=== PATIENT | female | born 1975 | race African-American/Black ===

== ENCOUNTER 2018-04-11 04:46 | Inpatient (IN) | payer BC ==
[2018-04-11] MEDS ORDERED: ACETAMINOPHEN 325 MG TAB PO (06:00)
[2018-04-11] MEDS ORDERED: morphine 2 MG INJ IV (06:00)
[2018-04-11 07:44] LABS: ADD MAN DIFF? NO
[2018-04-11 07:55] LABS: WHITE BLOOD COUNT 5.4 10^3/ul (4.8-10.8)
[2018-04-11 07:55] LABS: BASOPHILS % 0.4 % (0.0-2.0); EOSINOPHILS # 0.2 10^3/ul (0.0-0.5); HEMOGLOBIN 11.4 g/dl (12.0-16.0); LYMPHOCYTES # 1.1 10^3/ul (0.8-2.9); LYMPHOCYTES % 21.1 % (15.0-51.0); MEAN CORPUSCULAR HEMOGLOBIN 25.4 pg (29.0-33.0); MEAN CORPUSCULAR HGB CONC 32.6 g/dl (32.0-37.0); MEAN PLATELET VOLUME 9.8 fl (7.4-10.4); MONOCYTE # 0.6 10^3/ul (0.3-0.9); MONOCYTES % 10.9 % (0.0-11.0); NEUTROPHIL # 3.5 10^3/ul (1.6-7.5); NEUTROPHILS % 64.4 % (39.0-77.0); PLATELET COUNT 404 10^3/UL (140-415); RED BLOOD COUNT 4.49 10^6/ul (4.20-5.40); RED CELL DISTRIBUTION WIDTH 14.3 % (11.5-14.5)
[2018-04-11] MEDS: PANTOPRAZOLE 40 MG INJ IV (08:13)
[2018-04-11 08:22] LABS: ALANINE AMINOTRANSFERASE 36 IU/L (13-69); ALBUMIN 3.4 g/dl (3.3-4.9); ALKALINE PHOSPHATASE 60 IU/L (42-121); ANION GAP 15 (8-16); ASPARTATE AMINO TRANSFERASE 25 IU/L (15-46); BILIRUBIN,INDIRECT 0.3 mg/dl (0-1.1); BILIRUBIN,TOTAL 0.3 mg/dl (0.2-1.3); BLOOD UREA NITROGEN 4 mg/dl (7-20); CALCIUM 8.8 mg/dl (8.4-10.2); CARBON DIOXIDE 27 mmol/L (21-31); CHLORIDE 109 mmol/L (97-110); CREATININE 0.61 mg/dl (0.44-1.00); GLUCOSE 84 mg/dl (70-220); POTASSIUM 3.6 mmol/L (3.5-5.1); SODIUM 147 mmol/L (135-144); TOTAL PROTEIN 8.2 g/dl (6.1-8.1)
[2018-04-11 15:03] LABS: CARCINOEMBRYONIC ANTIGEN 0.5 ng/ml (0.0-5.0)
[2018-04-11 15:28] LABS: CANCER ANTIGEN 19-9 < 1.4 U/ml (0.0-37.0)
[2018-04-11 16:35] LABS: INR 1.13; PROTIME 14.7 Sec (11.9-14.9); PT RATIO 1.1
[2018-04-11 23:27] LABS: ADD UMIC NO; UR ASCORBIC ACID NEGATIVE (NEGATIVE); UR BILIRUBIN (Dip) NEGATIVE (NEGATIVE); UR BLOOD (Dip) NEGATIVE (NEGATIVE); UR CLARITY SLIGHTLY CLOUDY (CLEAR); UR COLOR YELLOW (YELLOW); UR GLUCOSE (Dip) NEGATIVE (NEGATIVE); UR KETONES (Dip) NEGATIVE (NEGATIVE); UR LEUKOCYTE ESTERASE (Dip) NEGATIVE Leu/ul (NEGATIVE); UR NITRITE (Dip) NEGATIVE (NEGATIVE); UR RBC 0 /HPF (0-5); UR SPECIFIC GRAVITY (Dip) 1.008 (1.003-1.030); UR SQUAMOUS EPITHELIAL CELL MODERATE /HPF (FEW); UR TOTAL PROTEIN (Dip) NEGATIVE (NEGATIVE); UR UROBILINOGEN (Dip) NEGATIVE (NEGATIVE); UR WBC 1 /HPF (0-5)
[2018-04-12] MEDS: PANTOPRAZOLE 40 MG INJ IV (05:38)
[2018-04-12 08:31] LABS: ALANINE AMINOTRANSFERASE 34 IU/L (13-69); ALBUMIN/GLOBULIN RATIO 0.66; ALKALINE PHOSPHATASE 54 IU/L (42-121); ANION GAP 14 (8-16); ASPARTATE AMINO TRANSFERASE 26 IU/L (15-46); BILIRUBIN,INDIRECT 0.5 mg/dl (0-1.1); BILIRUBIN,TOTAL 0.5 mg/dl (0.2-1.3); BLOOD UREA NITROGEN 3 mg/dl (7-20); CALCIUM 8.8 mg/dl (8.4-10.2); CARBON DIOXIDE 25 mmol/L (21-31); CHLORIDE 109 mmol/L (97-110); CREATININE 0.59 mg/dl (0.44-1.00); GLUCOSE 79 mg/dl (70-220); POTASSIUM 4.2 mmol/L (3.5-5.1); SODIUM 144 mmol/L (135-144); TOTAL PROTEIN 7.5 g/dl (6.1-8.1)
[2018-04-12] MEDS: LIDOCAINE 1% (MDV) 10 ML INJ (12:14)
[2018-04-12 14:10] LABS: FLD MN% 79.4 %; FLD PMN% 20.6 %; FLD RBC 3000 /uL; FLD WBC 3309 /cmm
[2018-04-12 14:21] LABS: FLD TYPE PARACENTHESIS
[2018-04-12 14:21] LABS: FLD CLARITY HAZY; FLD COLOR YELLOW; FLUID GLUCOSE 96 mg/dl; FLUID TOTAL PROTEIN 6.1 g/dl; FLUID TYPE PARACENTESIS FLUID
[2018-04-13] MEDS: PANTOPRAZOLE 40 MG INJ IV (05:18)
[2018-04-13] MEDS: IOHEXOL 14.3 MG(I)/ML (ADULT) BTL PO (09:35)
[2018-04-13] MEDS: IOHEXOL 300MG/ML 150 ML BTL (13:17)
[2018-04-13] MEDS: SOD CHLORIDE 0.9% 100 ML (13:17)
[2018-04-13] MEDS ORDERED: morphine LIQ (10 MG/5 ML) CUP PO (14:30)
[2018-04-14] MEDS: PANTOPRAZOLE 40 MG INJ IV (05:19)
[2018-04-14 05:46] LABS: ADD MAN DIFF? NO
[2018-04-14 05:51] LABS: BASOPHILS % 0.4 % (0.0-2.0); EOSINOPHILS # 0.2 10^3/ul (0.0-0.5); EOSINOPHILS % 4.5 % (0.0-7.0); HEMATOCRIT 34.2 % (37.0-47.0); HEMOGLOBIN 11.1 g/dl (12.0-16.0); LYMPHOCYTES # 1.3 10^3/ul (0.8-2.9); LYMPHOCYTES % 23.8 % (15.0-51.0); MEAN CORPUSCULAR HEMOGLOBIN 24.9 pg (29.0-33.0); MEAN CORPUSCULAR HGB CONC 32.5 g/dl (32.0-37.0); MEAN CORPUSCULAR VOLUME 76.9 fl (82.0-101.0); MEAN PLATELET VOLUME 9.1 fl (7.4-10.4); MONOCYTE # 0.6 10^3/ul (0.3-0.9); MONOCYTES % 10.7 % (0.0-11.0); NEUTROPHIL # 3.2 10^3/ul (1.6-7.5); NEUTROPHILS % 60.2 % (39.0-77.0); PLATELET COUNT 385 10^3/UL (140-415); RED BLOOD COUNT 4.45 10^6/ul (4.20-5.40); RED CELL DISTRIBUTION WIDTH 14.1 % (11.5-14.5)
[2018-04-14 05:51] LABS: WHITE BLOOD COUNT 5.3 10^3/ul (4.8-10.8)
[2018-04-14 06:25] LABS: ANION GAP 13 (8-16); BLOOD UREA NITROGEN 6 mg/dl (7-20); CALCIUM 8.7 mg/dl (8.4-10.2); CARBON DIOXIDE 26 mmol/L (21-31); CHLORIDE 107 mmol/L (97-110); CREATININE 0.62 mg/dl (0.44-1.00); GLUCOSE 93 mg/dl (70-220); POTASSIUM 3.9 mmol/L (3.5-5.1); SODIUM 142 mmol/L (135-144)
[2018-04-14 10:06] LABS: INR 1.09; PROTIME 14.2 Sec (11.9-14.9); PT RATIO 1.1
[2018-04-14 10:07] LABS: PARTIAL THROMBOPLASTIN TIME 32.6 Sec (25.0-35.0)
[2018-04-14] MEDS: DEXTROSE 5%-0.45% NACL 1,000 ML IV (10:30)
[2018-04-14] MEDS: LIDOCAINE 1% (MDV) 10 ML INJ (13:43)
[2018-04-14] MEDS: FENTAnyl 50 MCG/ML VIAL (13:43)
[2018-04-14] MEDS: GELATIN 12MM X 7 MM SPONGE (15:34)
[2018-04-15] MEDS: PANTOPRAZOLE 40 MG INJ IV (05:14)
[2018-04-15] MEDS: DEXTROSE 5%-0.45% NACL 1,000 ML IV ×2 (06:30→23:28)
[2018-04-15 20:58] LABS: BODY FLUID Ascitic fluid
[2018-04-16] MEDS: PANTOPRAZOLE 40 MG INJ IV (05:58)
[2018-04-16 11:27] LABS: LACTATE DEHYDROGENASE 544 IU/L (313-618)
[2018-04-16] MEDS ORDERED: ONDANSETRON 4 MG INJ IV (18:00)
[2018-04-17] MEDS: PANTOPRAZOLE 40 MG INJ IV ×2 (05:35→09:26)
[2018-04-17] MEDS: FUROSEMIDE 20 MG INJ IV (09:25)
[2018-04-18] MEDS: PANTOPRAZOLE 40 MG INJ IV (05:37)
[2018-04-18] MEDS: FUROSEMIDE 20 MG INJ IV (09:48)
== END 2018-04-18 15:00 | disposition home or self-care (01) | DRG 375 ==
LOC: PP2 04:46 → TEL 06:01 → MS1 04-12 22:59
PROVIDERS: Internal Medicine Nephrology
PROC: 0W9G3ZZ Drainage of Peritoneal Cavity, Percutaneous Approach (ICD-10-PCS; 2018-04-12)
PROC: 0JBC3ZX Excision of Pelvic Region Subcutaneous Tissue and Fascia, Percutaneous Approach, Diagnostic (ICD-10-PCS; principal; 2018-04-14)
DX: C78.6 Secondary malignant neoplasm of retroperitoneum and peritoneum (principal); R18.8 Other ascites; E87.0 Hyperosmolality and hypernatremia; D64.9 Anemia, unspecified; C80.1 Malignant (primary) neoplasm, unspecified; Z90.710 Acquired absence of both cervix and uterus; Z90.721 Acquired absence of ovaries, unilateral
CPT/HCPCS: 74178; 76700; 76830; 76856; 77012; 80048; 80053; 81001; 81003; 82105; 82378; 82945; 83615; 83986; 84157; 84702; 85025; 85610; 85730; 86301; 86304; 87070; 87102; 87116; 88104; 88305; 88307; 88313; 89051; 93306

== ENCOUNTER 2018-05-02 12:20 | Inpatient (IN) | payer BC ==
[~2018-05-02 12:20] MED LIST: ROCURONIUM 50 MG INJ
[2018-05-02] MEDS ORDERED: ROPIVACAINE 0.2% 20 ML VIAL (16:07)
[2018-05-02] MEDS ORDERED: MIDAZOLAM 1 MG/ML 2 ML INJ (16:07)
[2018-05-02] MEDS ORDERED: CEFAZOLIN 1 GM INJ (16:50)
[2018-05-02] MEDS ORDERED: ONDANSETRON 4 MG INJ (16:54)
[2018-05-02] MEDS ORDERED: DEXAMETHASONE 4 MG/ML 1 ML INJ (16:54)
[2018-05-02] MEDS ORDERED: FAMOTIDINE 20 MG INJ (16:54)
[2018-05-02] MEDS ORDERED: SUGAMMADEX SODIUM 200 MG/2 ML VIAL IV (18:09)
[2018-05-02] MEDS ORDERED: HYDROCODONE/APAP (5/325) TAB PO (18:30)
[2018-05-02] MEDS ORDERED: ONDANSETRON 4 MG INJ IV ×2 (18:30→19:00)
[2018-05-02] MEDS ORDERED: DIPHENHYDRAMINE 50 MG INJ IV (18:30)
[2018-05-02] MEDS ORDERED: CEPASTAT LOZENGE MT (18:30)
[2018-05-02] MEDS ORDERED: morphine 2 MG INJ IV (18:30)
[2018-05-02] MEDS ORDERED: HYDROmorphONE 1 MG/5 ML IV SYRINGE IV (19:00)
[2018-05-02 19:31] LABS: ADD MAN DIFF? NO
[2018-05-02 19:35] LABS: EOSINOPHILS % 0.4 % (0.0-7.0); HEMATOCRIT 33.9 % (37.0-47.0); LYMPHOCYTES # 0.6 10^3/ul (0.8-2.9); LYMPHOCYTES % 6.8 % (15.0-51.0); MEAN CORPUSCULAR HEMOGLOBIN 24.8 pg (29.0-33.0); MEAN CORPUSCULAR HGB CONC 32.4 g/dl (32.0-37.0); MEAN CORPUSCULAR VOLUME 76.5 fl (82.0-101.0); MEAN PLATELET VOLUME 8.9 fl (7.4-10.4); MONOCYTE # 0.2 10^3/ul (0.3-0.9); NEUTROPHIL # 8.3 10^3/ul (1.6-7.5); NEUTROPHILS % 90.5 % (39.0-77.0); PLATELET COUNT 343 10^3/UL (140-415); RED BLOOD COUNT 4.43 10^6/ul (4.20-5.40); RED CELL DISTRIBUTION WIDTH 14.6 % (11.5-14.5)
[2018-05-02 19:35] LABS: WHITE BLOOD COUNT 9.2 10^3/ul (4.8-10.8)
[2018-05-02 19:53] LABS: ANION GAP 7 (8-16); BLOOD UREA NITROGEN 5 mg/dl (7-20); CALCIUM 8.2 mg/dl (8.4-10.2); CARBON DIOXIDE 25 mmol/L (21-31); CHLORIDE 108 mmol/L (97-110); GLUCOSE 95 mg/dl (70-220); POTASSIUM 3.6 mmol/L (3.5-5.1); SODIUM 136 mmol/L (135-144)
[2018-05-02] MEDS: D5-NS + KCL 20 MEQ 1,000 ML IV (20:13)
[2018-05-02] MEDS: FAMOTIDINE 20 MG TAB PO (21:00)
[2018-05-03] MEDS: D5-NS + KCL 20 MEQ 1,000 ML IV ×3 (04:45→15:47)
[2018-05-03 05:43] LABS: ADD MAN DIFF? NO
[2018-05-03 05:46] LABS: HEMATOCRIT 34.6 % (37.0-47.0); HEMOGLOBIN 11.4 g/dl (12.0-16.0); LYMPHOCYTES # 0.7 10^3/ul (0.8-2.9); LYMPHOCYTES % 10.6 % (15.0-51.0); MEAN CORPUSCULAR HEMOGLOBIN 24.9 pg (29.0-33.0); MEAN CORPUSCULAR HGB CONC 32.9 g/dl (32.0-37.0); MEAN CORPUSCULAR VOLUME 75.5 fl (82.0-101.0); MEAN PLATELET VOLUME 9.5 fl (7.4-10.4); MONOCYTE # 0.4 10^3/ul (0.3-0.9); MONOCYTES % 5.6 % (0.0-11.0); NEUTROPHIL # 5.5 10^3/ul (1.6-7.5); NEUTROPHILS % 83.5 % (39.0-77.0); PLATELET COUNT 364 10^3/UL (140-415); RED BLOOD COUNT 4.58 10^6/ul (4.20-5.40); RED CELL DISTRIBUTION WIDTH 14.7 % (11.5-14.5)
[2018-05-03 05:46] LABS: WHITE BLOOD COUNT 6.6 10^3/ul (4.8-10.8)
[2018-05-03 06:25] LABS: ALANINE AMINOTRANSFERASE 35 IU/L (13-69); ALBUMIN/GLOBULIN RATIO 0.62; ALKALINE PHOSPHATASE 59 IU/L (42-121); ANION GAP 9 (8-16); ASPARTATE AMINO TRANSFERASE 29 IU/L (15-46); BILIRUBIN,INDIRECT 0.4 mg/dl (0-1.1); BILIRUBIN,TOTAL 0.4 mg/dl (0.2-1.3); BLOOD UREA NITROGEN 4 mg/dl (7-20); CALCIUM 8.3 mg/dl (8.4-10.2); CARBON DIOXIDE 24 mmol/L (21-31); CHLORIDE 111 mmol/L (97-110); CREATININE 0.54 mg/dl (0.44-1.00); GLUCOSE 157 mg/dl (70-220); POTASSIUM 4.2 mmol/L (3.5-5.1); SODIUM 140 mmol/L (135-144); TOTAL PROTEIN 7.8 g/dl (6.1-8.1)
[2018-05-03] MEDS: FAMOTIDINE 20 MG TAB PO ×2 (08:57→22:29)
[2018-05-03] MEDS: ENOXAPARIN 40 MG/0.4 ML SYG SC (08:58)
[2018-05-04 06:13] LABS: ADD MAN DIFF? NO
[2018-05-04 06:15] LABS: BASOPHILS % 0.2 % (0.0-2.0); EOSINOPHILS # 0.3 10^3/ul (0.0-0.5); EOSINOPHILS % 3.8 % (0.0-7.0); HEMATOCRIT 35.2 % (37.0-47.0); HEMOGLOBIN 11.5 g/dl (12.0-16.0); LYMPHOCYTES # 1.2 10^3/ul (0.8-2.9); LYMPHOCYTES % 18.2 % (15.0-51.0); MEAN CORPUSCULAR HEMOGLOBIN 24.9 pg (29.0-33.0); MEAN CORPUSCULAR HGB CONC 32.7 g/dl (32.0-37.0); MEAN CORPUSCULAR VOLUME 76.2 fl (82.0-101.0); MEAN PLATELET VOLUME 9.4 fl (7.4-10.4); MONOCYTE # 0.8 10^3/ul (0.3-0.9); MONOCYTES % 11.3 % (0.0-11.0); NEUTROPHIL # 4.4 10^3/ul (1.6-7.5); PLATELET COUNT 339 10^3/UL (140-415); RED BLOOD COUNT 4.62 10^6/ul (4.20-5.40); RED CELL DISTRIBUTION WIDTH 14.7 % (11.5-14.5)
[2018-05-04 06:15] LABS: WHITE BLOOD COUNT 6.6 10^3/ul (4.8-10.8)
[2018-05-04] MEDS: ENOXAPARIN 40 MG/0.4 ML SYG SC (06:28)
[2018-05-04 07:06] LABS: ANION GAP 8 (8-16); CALCIUM 8.2 mg/dl (8.4-10.2); CARBON DIOXIDE 25 mmol/L (21-31); CHLORIDE 110 mmol/L (97-110); CREATININE 0.57 mg/dl (0.44-1.00); GLUCOSE 84 mg/dl (70-220); POTASSIUM 3.8 mmol/L (3.5-5.1); SODIUM 139 mmol/L (135-144)
[2018-05-04 07:10] LABS: BLOOD UREA NITROGEN < 2 mg/dl (7-20)
[2018-05-04] MEDS: FAMOTIDINE 20 MG TAB PO ×2 (09:10→21:30)
[2018-05-04] MEDS ORDERED: morphine LIQ (10 MG/5 ML) CUP PO (15:00)
[2018-05-04 18:27] LABS: CARCINOEMBRYONIC ANTIGEN 0.4 ng/ml (0.0-5.0)
[2018-05-05] MEDS: ENOXAPARIN 40 MG/0.4 ML SYG SC (07:00)
[2018-05-05] MEDS: FAMOTIDINE 20 MG TAB PO ×2 (08:00→20:38)
[2018-05-06] MEDS: ENOXAPARIN 40 MG/0.4 ML SYG SC (06:31)
[2018-05-06] MEDS: FAMOTIDINE 20 MG TAB PO ×2 (09:24→20:00)
[2018-05-06 11:56] LABS: NIL 0.04 IU/mL; QUANTIFERON(R)-TB GOLD NEGATIVE (NEGATIVE); TB-NIL 0.01 IU/mL
[2018-05-06] MEDS ORDERED: VITAMIN A & D 5 GM OINT PACKET TOP (16:52)
[2018-05-07] MEDS: ENOXAPARIN 40 MG/0.4 ML SYG SC (07:00)
[2018-05-07] MEDS: FAMOTIDINE 20 MG TAB PO ×2 (08:33→20:08)
[2018-05-07] MEDS: ACETAMINOPHEN 325 MG TAB PO (16:01)
[2018-05-08 06:00] LABS: ADD MAN DIFF? NO
[2018-05-08 06:08] LABS: BASOPHILS % 0.4 % (0.0-2.0); EOSINOPHILS # 0.4 10^3/ul (0.0-0.5); EOSINOPHILS % 6.3 % (0.0-7.0); HEMATOCRIT 33.2 % (37.0-47.0); HEMOGLOBIN 10.8 g/dl (12.0-16.0); LYMPHOCYTES # 1.5 10^3/ul (0.8-2.9); LYMPHOCYTES % 26.2 % (15.0-51.0); MEAN CORPUSCULAR HEMOGLOBIN 24.5 pg (29.0-33.0); MEAN CORPUSCULAR HGB CONC 32.5 g/dl (32.0-37.0); MEAN CORPUSCULAR VOLUME 75.5 fl (82.0-101.0); MEAN PLATELET VOLUME 9.2 fl (7.4-10.4); MONOCYTE # 0.7 10^3/ul (0.3-0.9); MONOCYTES % 11.6 % (0.0-11.0); NEUTROPHIL # 3.1 10^3/ul (1.6-7.5); NEUTROPHILS % 55.1 % (39.0-77.0); PLATELET COUNT 316 10^3/UL (140-415); RED CELL DISTRIBUTION WIDTH 14.5 % (11.5-14.5)
[2018-05-08 06:08] LABS: WHITE BLOOD COUNT 5.6 10^3/ul (4.8-10.8)
[2018-05-08] MEDS: ENOXAPARIN 40 MG/0.4 ML SYG SC (06:08)
[2018-05-08 06:28] LABS: ANION GAP 10 (8-16); BLOOD UREA NITROGEN 8 mg/dl (7-20); CALCIUM 8.5 mg/dl (8.4-10.2); CARBON DIOXIDE 25 mmol/L (21-31); CHLORIDE 108 mmol/L (97-110); CREATININE 0.56 mg/dl (0.44-1.00); GLUCOSE 110 mg/dl (70-220); POTASSIUM 3.8 mmol/L (3.5-5.1); SODIUM 139 mmol/L (135-144)
[2018-05-08] MEDS: FAMOTIDINE 20 MG TAB PO ×2 (08:16→20:01)
[2018-05-08 15:07] LABS: RHEUMATOID FACTOR NEGATIVE (NEGATIVE)
[2018-05-08] MEDS ORDERED: VITAMIN A & D 5 GM OINT PACKET TOP (20:04)
[2018-05-09] MEDS: ENOXAPARIN 40 MG/0.4 ML SYG SC (07:00)
[2018-05-09] MEDS: FAMOTIDINE 20 MG TAB PO ×2 (08:16→20:13)
[2018-05-10] MEDS: ENOXAPARIN 40 MG/0.4 ML SYG SC (06:31)
[2018-05-10] MEDS: FAMOTIDINE 20 MG TAB PO ×2 (09:11→20:27)
[2018-05-10 11:08] LABS: ERYTHROCYTE SEDIMENTATION RATE 78 mm/Hr (0-20)
[2018-05-10 15:07] LABS: MYELOPEROXIDASE ANTIBODY <1.0 AI; PROTEINASE-3 ANTIBODY <1.0 AI
[2018-05-10 18:46] LABS: ADD UMIC YES; UR ASCORBIC ACID NEGATIVE (NEGATIVE); UR BILIRUBIN (Dip) NEGATIVE (NEGATIVE); UR BLOOD (Dip) 1+ mg/dL (NEGATIVE); UR CLARITY CLEAR (CLEAR); UR COLOR STRAW (YELLOW); UR GLUCOSE (Dip) NEGATIVE (NEGATIVE); UR KETONES (Dip) NEGATIVE (NEGATIVE); UR LEUKOCYTE ESTERASE (Dip) NEGATIVE Leu/ul (NEGATIVE); UR NITRITE (Dip) NEGATIVE (NEGATIVE); UR RBC 1 /HPF (0-5); UR SPECIFIC GRAVITY (Dip) 1.011 (1.003-1.030); UR SQUAMOUS EPITHELIAL CELL FEW /HPF (FEW); UR TOTAL PROTEIN (Dip) NEGATIVE (NEGATIVE); UR UROBILINOGEN (Dip) NEGATIVE (NEGATIVE); UR WBC 0 /HPF (0-5)
[2018-05-11 05:56] LABS: INR 0.99; PROTIME 13.2 Sec (11.9-14.9)
[2018-05-11] MEDS: ENOXAPARIN 40 MG/0.4 ML SYG SC (06:30)
[2018-05-11 06:59] LABS: C-REACTIVE PROTEIN 4.2 mg/dl (0.0-0.9)
[2018-05-11] MEDS: FAMOTIDINE 20 MG TAB PO ×2 (08:01→20:52)
[2018-05-11] MEDS: LIDOCAINE 1% (MDV) 10 ML INJ (10:00)
[2018-05-11 13:13] LABS: ANCA SCREEN NEGATIVE (NEGATIVE)
[2018-05-12 05:52] LABS: ADD MAN DIFF? NO
[2018-05-12 05:57] LABS: BASOPHILS % 0.2 % (0.0-2.0); EOSINOPHILS # 0.3 10^3/ul (0.0-0.5); EOSINOPHILS % 5.3 % (0.0-7.0); HEMATOCRIT 31.5 % (37.0-47.0); HEMOGLOBIN 10.3 g/dl (12.0-16.0); LYMPHOCYTES # 1.8 10^3/ul (0.8-2.9); LYMPHOCYTES % 29.4 % (15.0-51.0); MEAN CORPUSCULAR HEMOGLOBIN 24.6 pg (29.0-33.0); MEAN CORPUSCULAR HGB CONC 32.7 g/dl (32.0-37.0); MEAN CORPUSCULAR VOLUME 75.4 fl (82.0-101.0); MEAN PLATELET VOLUME 9.2 fl (7.4-10.4); MONOCYTE # 0.6 10^3/ul (0.3-0.9); MONOCYTES % 10.1 % (0.0-11.0); NEUTROPHIL # 3.4 10^3/ul (1.6-7.5); NEUTROPHILS % 54.7 % (39.0-77.0); PLATELET COUNT 355 10^3/UL (140-415); RED BLOOD COUNT 4.18 10^6/ul (4.20-5.40); RED CELL DISTRIBUTION WIDTH 14.8 % (11.5-14.5)
[2018-05-12 05:57] LABS: WHITE BLOOD COUNT 6.3 10^3/ul (4.8-10.8)
[2018-05-12 06:35] LABS: ALANINE AMINOTRANSFERASE 122 IU/L (13-69); ALBUMIN 2.9 g/dl (3.3-4.9); ALBUMIN/GLOBULIN RATIO 0.61; ALKALINE PHOSPHATASE 59 IU/L (42-121); ANION GAP 10 (8-16); ASPARTATE AMINO TRANSFERASE 110 IU/L (15-46); BILIRUBIN,INDIRECT 0.3 mg/dl (0-1.1); BILIRUBIN,TOTAL 0.3 mg/dl (0.2-1.3); BLOOD UREA NITROGEN 11 mg/dl (7-20); CALCIUM 8.7 mg/dl (8.4-10.2); CARBON DIOXIDE 25 mmol/L (21-31); CHLORIDE 109 mmol/L (97-110); CREATININE 0.69 mg/dl (0.44-1.00); GLUCOSE 90 mg/dl (70-220); POTASSIUM 4.1 mmol/L (3.5-5.1); SODIUM 140 mmol/L (135-144); TOTAL PROTEIN 7.6 g/dl (6.1-8.1)
[2018-05-12] MEDS: ENOXAPARIN 40 MG/0.4 ML SYG SC (06:35)
[2018-05-12] MEDS: FAMOTIDINE 20 MG TAB PO ×2 (08:29→20:44)
[2018-05-12] MEDS: FLUCONAZOLE 200 MG TAB PO (15:39)
[2018-05-12 21:57] LABS: HISTOPLASMA GALACTOMANNAN AG U <0.5 ng/mL
[2018-05-13] MEDS: ACETAMINOPHEN 325 MG TAB PO (00:10)
[2018-05-13] MEDS: FLUCONAZOLE 200 MG TAB PO ×3 (00:14→20:18)
[2018-05-13] MEDS: ENOXAPARIN 40 MG/0.4 ML SYG SC (05:42)
[2018-05-13] MEDS: FAMOTIDINE 20 MG TAB PO ×2 (10:15→20:18)
[2018-05-13 12:40] LABS: HIV 1&2 ANTIBODY NEGATIVE (NEGATIVE)
[2018-05-13 15:01] LABS: ANA SCREEN NEGATIVE (NEGATIVE)
== END 2018-05-13 20:30 | disposition home or self-care (01) | DRG 867 ==
LOC: REC 12:20 → MS2 05-04 04:05
PROC: 0DBW4ZX Excision of Peritoneum, Percutaneous Endoscopic Approach, Diagnostic (ICD-10-PCS; principal; 2018-05-02 14:30)
DX: B38.7 Disseminated coccidioidomycosis (principal); K65.8 Other peritonitis; R18.8 Other ascites; D64.9 Anemia, unspecified; I10 Essential (primary) hypertension; R97.0 Elevated carcinoembryonic antigen [CEA]; R68.81 Early satiety; Z85.43 Personal history of malignant neoplasm of ovary
CPT/HCPCS: 71045; 78306; 80048; 80053; 81001; 82164; 82378; 83520; 84703; 85025; 85610; 85651; 86021; 86038; 86140; 86430; 86480; 86635; 86641; 86703; 86850; 86900; 86901; 86920; 87070; 87075; 87086; 87102; 87116; 87385; 87536; 88104; 88305; 88307; 88312; 88331; A9503